=== PATIENT | female | born 2000 | race African-American/Black ===

== ENCOUNTER 2018-02-24 13:51 | Emergency (ER) | payer OTHER ==
[~2018-02-24] VITALS: Ht 170.2 cm; Wt 77.1 kg
[~2018-02-24 13:51] MED LIST: ALBUTEROL2.5 MG/0.5; DOXYCYCLINE 10100 M1; HYDROXYZINE HCL25 M1; IBUPROFEN 800800 M1 PO; NORCO 5-325 TA1 EACH PO; NORFLEX100 MG PO; PHENERGAN 25 MG25 M1
[2018-02-24 14:21] LABS: URINE BLOOD NEGATIVE (Negative); URINE CLARITY CLEAR; URINE COLOR YELLOW; URINE GLUCOSE-RANDOM* NEGATIVE (Negative); URINE KETONES 2+ (Negative); URINE LEUKOCYTES NEGATIVE (Negative); URINE NITRITE NEGATIVE (Negative); URINE PROTEIN (DIPSTICK) TRACE (Negative); URINE SPECIFIC GRAVITY >= 1.030 (1.005-1.035); URINE UROBILINOGEN 0.2 E.U./dl (0.2-1.0)
[2018-02-24 14:26] LABS: URINE BILIRUBIN NEGATIVE (Negative)
[2018-02-24] MEDS ORDERED: PEPCID40 MG PO (14:30)
[2018-02-24] MEDS ORDERED: ZOFRAN ODT4 MG PO (14:30)
[2018-02-24] MEDS ORDERED: PROTONIX40 MG PO (14:30)
[2018-02-24] MEDS ORDERED: PHENERGAN 25 MG25 M1 PO (14:30)
[2018-02-24] MEDS ORDERED: CITRATE OF MAG296 ML PO (14:59)
[2018-02-24 15:13] VITALS: BP 103/63
== END 2018-02-24 15:13 | disposition home or self-care (01) ==
LOC: ER 13:51
PROVIDERS: Emergency Medicine
DX: R10.13 Epigastric pain (principal); R11.0 Nausea; K59.00 Constipation, unspecified; J45.909 Unspecified asthma, uncomplicated; Z88.8 Allergy status to other drugs, medicaments and biological substances

== ENCOUNTER 2019-08-24 17:31 | Emergency (ER) | payer OTHER ==
[~2019-08-24] VITALS: Ht 170.2 cm; Wt 73.0 kg
[~2019-08-24 17:31] MED LIST changes: +CITRATE OF MAG296 ML PO; +PEPCID40 MG PO; +PHENERGAN 25 MG25 M1 PO; +PROTONIX40 MG PO; +ZOFRAN ODT4 MG PO
[2019-08-24 18:18] LABS: ABSOLUTE NEUTROPHILS 9.1 thou/uL (1.4-8.2); BASOPHILS 0.4 % (0.0-2.0); EOSINOPHILS 0.2 % (0.0-3.0); HEMATOCRIT 38.9 % (37.0-47.0); HEMOGLOBIN 12.8 gm/dL (12.0-15.0); LYMPHOCYTES 14.6 % (24.0-44.0); MCH 29.1 pg (26.0-34.0); MCHC 32.8 g/dL (28.0-37.0); MCV 88.7 fL (80.0-100.0); MONOCYTES 4.8 % (1.0-8.0); PLATELET COUNT 309 thou/uL (150-400); RBC 4.39 mil/uL (4.20-5.00); RDW 13.3 % (10.5-14.5); WBC 11.4 thou/uL (4.0-11.0)
[2019-08-24 18:26] LABS: CALCIUM 10.3 mg/dL (8.5-10.1); CREATININE 0.6 mg/dL (0.6-1.0); POTASSIUM 3.6 mmol/L (3.5-5.1)
[2019-08-24 18:32] LABS: ALBUMIN 3.8 g/dL (3.4-5.0); TOTAL BILIRUBIN 0.4 mg/dL (<0.1-1.0)
[2019-08-24 22:20] VITALS: BP 109/48
== END 2019-08-24 22:30 | disposition short-term general hospital (02) ==
LOC: ER 17:31
PROVIDERS: Physician Assistant
DX: O21.0 Mild hyperemesis gravidarum (principal); R10.31 Right lower quadrant pain; J45.909 Unspecified asthma, uncomplicated; Z3A.11 11 weeks gestation of pregnancy

== ENCOUNTER 2019-10-11 11:11 | Emergency (ER) | payer OTHER ==
[~2019-10-11] VITALS: Ht 170.2 cm; Wt 79.8 kg
[2019-10-11 12:38] LABS: ABSOLUTE NEUTROPHILS 6.2 thou/uL (1.4-8.2); BASOPHILS 0.3 % (0.0-2.0); EOSINOPHILS 0.8 % (0.0-3.0); HEMATOCRIT 31.7 % (37.0-47.0); HEMOGLOBIN 10.5 gm/dL (12.0-15.0); LYMPHOCYTES 17.8 % (24.0-44.0); MCH 30.2 pg (26.0-34.0); MCHC 33.2 g/dL (28.0-37.0); MONOCYTES 5.7 % (1.0-8.0); PLATELET COUNT 267 thou/uL (150-400); POLYS 75.4 % (36.0-66.0); RBC 3.48 mil/uL (4.20-5.00); RDW 13.6 % (10.5-14.5); WBC 8.3 thou/uL (4.0-11.0)
[2019-10-11 12:55] LABS: CALCIUM 9.2 mg/dL (8.5-10.1); CREATININE 0.5 mg/dL (0.6-1.0); POTASSIUM 3.9 mmol/L (3.5-5.1)
[2019-10-11 13:01] LABS: TOTAL BILIRUBIN 0.3 mg/dL (<0.1-1.0)
[2019-10-11 15:24] LABS: URINE BILIRUBIN 1+ (Negative); URINE BLOOD NEGATIVE (Negative); URINE CLARITY CLOUDY; URINE COLOR YELLOW; URINE GLUCOSE-RANDOM* NEGATIVE (Negative); URINE KETONES 3+ (Negative); URINE NITRITE-REFLEX NEGATIVE (Negative); URINE PROTEIN (DIPSTICK) TRACE (Negative); URINE UROBILINOGEN 0.2 E.U./dl (0.2-1.0)
[2019-10-11 15:26] LABS: URINE LEUKOCYTES-REFLEX 3+ (Negative)
[2019-10-11 15:34] LABS: SQUAMOUS >10 Many /LPF (0-3)
[2019-10-11 15:38] LABS: CASTS None Seen /LPF (None Seen); MUCUS None Seen strn/LPF (None Seen); URINE RBC None Seen /HPF (0-2); URINE WBC-REFLEX 6-15 Few /HPF (0-5)
[2019-10-11 15:39] LABS: AMORPHOUS PHOSPHATES Moderate /LPF (None Seen); CRYSTALS None Seen /LPF (None Seen)
[2019-10-11] MEDS ORDERED: MACROBID 100 M100 M2 PO (15:51)
[2019-10-11 16:00] VITALS: BP 112/68
== END 2019-10-11 16:02 | disposition home or self-care (01) ==
LOC: ER 11:11
PROVIDERS: Emergency Medicine
DX: O23.12 Infections of bladder in pregnancy, second trimester (principal); O21.8 Other vomiting complicating pregnancy; R19.7 Diarrhea, unspecified; J45.909 Unspecified asthma, uncomplicated; Z88.8 Allergy status to other drugs, medicaments and biological substances; Z3A.19 19 weeks gestation of pregnancy

== ENCOUNTER 2019-11-08 10:12 | Emergency (ER) | payer OTHER ==
[~2019-11-08] VITALS: Ht 170.2 cm; Wt 79.8 kg
[~2019-11-08 10:12] MED LIST changes: +MACROBID 100 M100 M2 PO
[2019-11-08 10:14] VITALS: BP 130/70
[2019-11-08] MEDS ORDERED: ENBRACE HR SOF1 EACH PO (10:18)
[2019-11-08] MEDS ORDERED: ONDANSETRON HCL4 M2 PO (11:28)
[2019-11-08] MEDS ORDERED: ALLERGY 4-HOUR4 MG PO (11:28)
[2019-11-08] MEDS ORDERED: TAMIFLU75 MG PO (11:28)
[2019-11-08] MEDS ORDERED: FLONASE 0.05%50 MCG NARES (11:28)
== END 2019-11-08 11:14 | disposition home or self-care (01) ==
LOC: ER 10:12
DX: R05 Cough (principal); J45.909 Unspecified asthma, uncomplicated; Z88.1 Allergy status to other antibiotic agents; Z88.8 Allergy status to other drugs, medicaments and biological substances

== ENCOUNTER 2021-08-02 14:08 | Emergency (ER) | payer OTHER ==
[~2021-08-02] VITALS: Ht 170.2 cm; Wt 108.9 kg
[~2021-08-02 14:08] MED LIST changes: +ALLERGY 4-HOUR4 MG PO; +ENBRACE HR SOF1 EACH PO; +FLONASE 0.05%50 MCG NARES; +ONDANSETRON HCL4 M2 PO; +TAMIFLU75 MG PO
[2021-08-02] MEDS ORDERED: BENADRYL25 MG PO (14:18)
[2021-08-02] MEDS ORDERED: TESSALON PERLE100 MG PO (14:46)
== END 2021-08-02 14:48 | disposition home or self-care (01) ==
LOC: ER 14:08
DX: J06.9 Acute upper respiratory infection, unspecified (principal); J45.909 Unspecified asthma, uncomplicated; Z91.09 Other allergy status, other than to drugs and biological substances; Z79.899 Other long term (current) drug therapy; Z88.6 Allergy status to analgesic agent; Z88.8 Allergy status to other drugs, medicaments and biological substances

== ENCOUNTER 2021-08-17 17:54 | Emergency (ER) | payer OTHER ==
[~2021-08-17] VITALS: Ht 170.2 cm; Wt 113.4 kg
[~2021-08-17 17:54] MED LIST changes: +BENADRYL25 MG PO; +TESSALON PERLE100 MG PO
[2021-08-17] MEDS ORDERED: AUGMENTIN 875-1 EACH PO (19:58)
[2021-08-17] MEDS ORDERED: ALBUTEROL2.5 MG/3 M INH (19:58)
[2021-08-17] MEDS ORDERED: PREDNISONE 20 M20 MG PO (19:58)
[2021-08-17 20:25] VITALS: BP 144/76
== END 2021-08-17 20:26 | disposition home or self-care (01) ==
LOC: ER 17:54
DX: J01.10 Acute frontal sinusitis, unspecified (principal); J01.00 Acute maxillary sinusitis, unspecified; J45.909 Unspecified asthma, uncomplicated; Z88.6 Allergy status to analgesic agent; Z88.8 Allergy status to other drugs, medicaments and biological substances